=== PATIENT | male | born 1960 | race Caucasian/White ===

== ENCOUNTER 2023-03-10 10:35 | Outpatient (CLI) | payer OTHER, SELFPAY | END 2023-03-10 10:36 | disposition home or self-care (01) | PROVIDERS: PCP Family Medicine; Visit Provider Family Medicine | DX: Z00.00 Encounter for general adult medical examination without abnormal findings (principal); E78.5 Hyperlipidemia, unspecified; Z12.5 Encounter for screening for malignant neoplasm of prostate | CPT/HCPCS: 80048; 80061; 84153 ==

== ENCOUNTER 2024-04-19 10:05 | Outpatient (CLI) | payer OTHER, SELFPAY ==
--- OUTSIDE RECORDS SUMMARY | 2024-04-19 10:09 | XMS_ITS | Clinical Summary ---
Author Organization [facility] Address [address] [place] [address] Care Team Providers Care Transfer Car Operator Name Role Phone Scar Lopes MD Primary Care Provider + Source Comments You are receiving this document as you are listed as the primary care provider,follow-up provider, or the patient has been referred to you for consultation.This is in compliance with the Medicare and[facility] EHR Incentive Program,which states Providers who transition their patient to another setting of careor provider of care or refers their patient to another provider of care shouldprovide summary care record for each transition of care or referral. [employer] Allergies No known active allergies Medications Medication Sig Dispensed Refills Start Date End Date Status drug not in computer CPAP 08/29/2012 Acti ve Ibuprofen-diphenhydr AMINE Cit (IBUPROFEN PM OR) Take 2 Tablets by mouth at bedtime as needed. Active SUMAtriptan (IMITREX) 50 MG tabletIndications:Ch ronic migraine without aura without status migrainosus, not intractable Take 1 Tablet (50 mg) by mouth as needed for Migraine. May repeat one tablet after 2 hours if needed. Maximum 4 tabs/24 hours and 9 days/month 9 Tablet 5 01/12/2022 Active propranolol (INDERALLA) 60 MG 24 hour release capsuleIndications:C hronic migraine without aura without status migrainosus, not intractable Take 1 Capsule (60 mg) by mouth daily. 90 Capsule 3 01/12/2022 Active fluticasone propionate (FLONASE) 50 MCG/ACT nasal solutionIndications: Dysfunction of right eustachian tube Place 2 Sprays into both nostrils daily. 16 g 11 03/02/2023 Active Active Problems Problem Noted Date Diagnosed Date Acquired hypothyroidism 01/12/2022 Chronic migraine without aur a without status migrainosus, not intractable 01/12/2022 IFG (impaired fasting glucose) 07/19/2017 Moderate episode of recurrent major depressive d isorder 02/24/2016 Generalized anxiety disorder 02/24/2016 Moderate obstructive sleep apnea 08/29/2012 Overview: Setting: APAP 5-15 cmH20 Supplied by: Lorna PSG done: 12/21/05 [facility] AHI 23 RDI Lowest O2 Sat: 88% Dunia Hyperlipidemia LDL goal <130 09/19/2010 Immunizations Name Administration Dates Next Due Influenza IIV4 (Quadrivalent ) 0.5mL (62823) 08/31/2018,07/19/2017,12/24/2015, 014 Pfizer Monovalent 12+ Purple Top 03/26/2021,02/18 TDAP (BOOSTRIX) 11/01/2013 Td 04/22/2005 Social History Tobacco Use Types Packs/Day Years Used Date Smoking Tobacco: Former Cigarettes Q uit: 1990 Smokeless Tobacco: Never Alcohol Use Standard Drinks/Week Comments Yes 0 (1 standard drink = 0.6 oz pur e alcohol) bottle of wine per week PHQ-2 Answer Date Recorded PHQ-2 Score 2 01/12/2022 Sex and Gender Information Value Date Recorded Sex Assigned at Not on file Gender Identity Not on file Sexual Orientation Not on file Last Filed Vital Signs Vital Sign Reading Time Taken Comments Blood Pressure 116/70 01/23/2019 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 Pulse 66 01/23/2019 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 Temperature 37 ??C (98.6 ??F) 01/12/2022 9:11 AM STUD BEEF CATTLE FARMER per pt Respiratory Rate - - Oxygen Saturation 98% 02/10/2016 3:09 PM CDT Inhaled Oxygen Concentration - - Weight 81.6 kg (180 lb) 01/12/2022 9:11 AM STUD BEEF CATTLE FARMER p er pt Height 177.8 cm (5' 10) 01/12/2022 9:11 AM STUD BEEF CATTLE FARMER per pt Body Mass Index 25.83 01/12/2022 9:11 AM STUD BEEF CATTLE FARMER Plan of Treatment Health Maintenance Due Date Last Done Comments PSA Screening Discussion 1960 Prediabetes: HGBA1C 1960 Adult Preventive Visit 1978 Zoster/Shingles (1 of 2) 2010 Colonoscopy 11/09/2020 11/09/2010 (Completed) COVID-19 Vaccine ( season) 2023 03/26/2021, 03/05/2021 Cholesterol 08/31/2023 08/31/2018, 06/22, 12/24/2015, Additional history exists DTaP/Tdap/Td (2 - Tdap) 11/01/2023 11/01/2013, 04/22 Influenza (Season Ended) 2024 018, 07/19/2017, 12/24/2015, Additional history exists HIV Screening (Preventive Services) Completed 07/19/2017 Hep C Screening (Preventive Services) Completed 07/19/2017 HepA Aged Out No longer eligi ble based on patient's age to complete this topic HepB Aged Out No longer eligi ble based on patient's age to complete this topic Hib Aged Out No longer eligi ble based on patient's age to complete this topic IPV (Polio) Aged Out No longer eligi ble based on patient's age to complete this topic MCV4 Aged Out No longer eligi ble based on patient's age to complete this topic Pneumococcal Aged Out No longer eligi ble based on patient's age to complete this topic Procedures Procedure Name Priority Date/Time Associated Diagnosis Comments LIPID PANEL & DIRECT LDL (IF NEEDED) Routine 08/31/2018 10:10 AM CDT Mixed hyperlipidemia HIV 1/2 AG/AB 4TH GEN Routine 07/19/2017 9:06 AM CDT Screening for HIV (human immunodeficiency virus) HEPATITIS C ANTIBODY, WITH REFLEX Routine 07/19/2017 9:06 AM CDT Need for hepatitis C screening test from Last 3 Months or Most Recently Relevant to Health Maintenance Results * (ABNORMAL) Lipid Panel - LDLD If Trig High (08/31/2018 10:10 AM CDT) Cholesterol 208(H) 0 - 199 mg/dL PN SOFT Triglycerides 211(H) 4 - 149 mg/dL PN SOFT HDL Cholesterol 38(L) >39 mg/dL PN SOFT Cholesterol/HDL Ratio Screen 5.5 PN SOFT LDL Calculated 128 19 - 130 mg/dL PN SOFT Non HDL Chol, Calc 170(H) 0 - 159 mg/dL PN SOFT Hours Fasting 12.0 PN SOFT 08/31/2018 10:1 0 AM CDT 08/31/2018 10:10 AM CDT Narrative PN SOFT - 08/31/2018 10:58 AM CDT Performed at [facility] [address] [place] [address] CLIA number [id number] Scar Lopes MD LAB_1 Performing Organization Address [facility] de Phone Number PN SOFT [address] [place] [address] * HIV 1/2 Ag/Ab 4th Generation (07/19/2017 9:06 AM CDT) HIV-1 p24 Ag and HIV-1/HIV-2 Ab Nonreactive Nonreactive PN SOFT 07/19/2017 9:06 AM CDT 07/19/2017 11:08 AM CDT Narrative PN SOFT - 07/19/2017 1:01 PM CDT Performed at [facility], [address] [place] [address] CLIA number [id number] Scar Lopes MD LAB_1 Performing Organization Address [facility] de Phone Number PN SOFT [address] [place] [address] * Hepatitis C Virus Urvashi with Reflex (07/19/2017 9:06 AM CDT) Hepatitis C Antibody Nonreactive Nonreactive PN SOFT 07/19/2017 9:06 AM CDT 07/19/2017 11:08 AM CDT Narrative PN SOFT - 07/19/2017 1:01 PM CDT Performed at [facility], [address] [facility], [place] [address] CLIA number [id number] Scar Lopes MD LAB_1 KRISTA MAGAÑA [address] [place] [address] from Last 3 Months or Most Recently Relevant to Health Maintenance Care Teams Transfer Car Operator Relationship Specialty Start Date End Date Scar Lopes MD [address] [place] [address] PCP - General 08/15/14
== END 2024-04-19 10:06 | disposition home or self-care (01) ==
PROVIDERS: PCP Family Medicine; Visit Provider Family Medicine
DX: Z00.00 Encounter for general adult medical examination without abnormal findings (principal); E78.2 Mixed hyperlipidemia; E03.9 Hypothyroidism, unspecified; Z12.5 Encounter for screening for malignant neoplasm of prostate
CPT/HCPCS: 80048; 80061; 84439; 84443; G0103

== ENCOUNTER 2024-09-10 13:29 | Outpatient (CLI) | payer OTHER, SELFPAY ==
--- OUTSIDE RECORDS SUMMARY | 2024-09-12 11:39 | XMS_ITS | Clinical Summary ---
Author Organization [facility] Address [address] [place] [address] Care Team Providers Care Prep Cook Name Role Phone Scar Lopes MD Primary Care Provider + Source Comments You are receiving this document as you are listed as the primary care provider,follow-up provider, or the patient has been referred to you for consultation.This is in compliance with the Medicare and[facility] EHR Incentive Program,which states Providers who transition their patient to another setting of careor provider of care or refers their patient to another provider of care shouldprovide summary care record for each transition of care or referral. [employer] Allergies No known active allergies Medications Medication [...] disorder 02/24/2016 Moderate obstructive sleep apnea 08/29/2012 Overview (03/06/2023): Setting: APAP 5-15 cmH20 Supplied by: Lorna PSG done: 12/21/05 [facility] AHI 23 RDI Lowest O2 Sat: 88% Dunia Hyperlipidemia LDL goal <130 09/19/2010 Encounters Date Type Department Care Team Description 08/07/2024 Notes/Orders [place] [facility] [address] 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 Pulse 66 01/23/2019 9:56 AM HOT STICK WORKER Temperature 37 ??C (98.6 ??F) 01/12/2022 9:11 AM HOT STICK WORKER per pt Respiratory Rate - - Oxygen Saturation 98% 02/10/2016 3:09 PM CDT Inhaled Oxygen Concentration - - Weight 81.6 kg (180 lb) 01/12/2022 9:11 AM HOT STICK WORKER p er pt Height 177.8 cm (5' 10) 01/12/2022 9:11 AM HOT STICK WORKER per pt Body Mass Index 25.83 01/12/2022 9:11 AM HOT STICK WORKER Plan of Treatment Health Maintenance Due Date Last Done Comments PSA Screening Discussion 1960 Prediabetes: HGBA1C 1960 Adult Preventive Visit 1978 Zoster/Shingles (1 of 2) 2010 RSV (1 - Risk 60-74 years 1-dose series) 2020 Colonoscopy 11/09/2020 11/09/2010 (Completed) Cholesterol 08/31/2023 08/31/2018, 06/22, 12/24/2015, Additional history exists DTaP/Tdap/Td (2 - Tdap) 11/01/2023 11/01/2013, 04/22 COVID-19 Vaccine ( season) 2024 03/26/2021, 03/05/2021 Influenza (#1) 2024 08/31/2018, 06/22, 12/24/2015, Additional history exists HIV Screening (Preventive [...] on patient's age to complete this topic RSV Aged Out No longer eligi ble based [...] - 08/31/2018 10:58 AM CDT Performed at [facility], [address] [place] [address] CLIA number [id number] Scar Lopes MD LAB_1 Performing Organization Address [facility] Co de Phone Number PN SOFT [address] [place] [address] * HIV 1/2 Ag/Ab 4th Generation (07/19/2017 9:06 AM CDT) HIV-1 p24 Ag and HIV-1/HIV-2 Ab Nonreactive Nonreactive PN SOFT 07/19/2017 9:06 AM CDT 07/19/2017 11:08 AM CDT Narrative PN SOFT - 07/19/2017 1:01 PM CDT Performed at [facility] [place] [address] CLIA number [id number] Scar Lopes MD LAB_1 Performing Organization Address City/[facility]/ZIP Co de Phone Number PN SOFT [address] [place] [address] * Hepatitis C Virus Urvashi with Reflex (07/19/2017 9:06 AM CDT) Hepatitis C Antibody Nonreactive Nonreactive PN SOFT 07/19/2017 9:06 AM CDT 07/19/2017 11:08 AM CDT Narrative PN SOFT - 07/19/2017 1:01 PM CDT Performed at [facility], [address] [place] [address] CLIA number [id number] Scar Lopes MD LAB_1 Performing Organization Address [facility] Co de Phone Number KRISTA Cartela AB [address] [place] [address] from Last 3 Months or Most Recently Relevant to Health Maintenance Care Teams Prep Cook Relationship Specialty Start Date End Date Scar Loeps MD [address] [place] [address] PCP - General 08/15/14
--- OUTSIDE RECORDS SUMMARY | 2024-09-12 11:39 | XMS_ITS | Encounter Summary ---
Author Organization [facility] Address [address] [place] [address] Care Team Providers Care Lead Java Developer Architect Name Role Phone Scar Lopes MD Primary Care Provider + Encounter Details Date Type Department Care Team (Late st Contact Info) Description 08/07/2024 Notes/Orders [facility] [address] [place] [address] Collins Richards MD [address] [place] [address] Routine general medical examination at health care facility Social History Tobacco Use Types Packs/Day Years [...] on file Sexual Orientation Not on file documented as of this encounter Plan of Treatment Pending Results Name Type Priority Associated Diagnoses Date /Time DNA Analysis Discrete Sequence Variation Panel (Saliva) (Patient Collected) Lab Routine Routine general medical examination at [facility] care facility 08/07/2024 6:49 AM CDT documented as of this encounter Visit Diagnoses Diagnosis Routine general medical examination at health care facility Routine general medical examination at a health care facility documented in this encounter Care Teams Lead Java Developer Architect Relationship Specialty Start Date End Date Scar Lopes MD [address] [facility] [address] [place] [address] PCP - General 08/15/14 documented as of this encounter
== END 2024-09-10 13:30 | disposition home or self-care (01) ==
LOC: NFLDREF 09-12 11:36
PROVIDERS: PCP Family Medicine; Referring Provider Family Medicine; Visit Provider Family Medicine
DX: R97.20 Elevated prostate specific antigen [PSA] (principal); E03.9 Hypothyroidism, unspecified; G43.109 Migraine with aura, not intractable, without status migrainosus; F41.1 Generalized anxiety disorder; F33.9 Major depressive disorder, recurrent, unspecified; E78.2 Mixed hyperlipidemia
CPT/HCPCS: 84153; 84439; 84443

== ENCOUNTER 2025-03-07 12:14 | Outpatient (CLI) | payer OTHER, SELFPAY | END 2025-03-07 12:15 | disposition home or self-care (01) | LOC: FBOREF 12:15 | PROVIDERS: PCP Family Medicine; Visit Provider Family Medicine | DX: E03.9 Hypothyroidism, unspecified (principal) | CPT/HCPCS: 80048; 84443 ==